=== PATIENT | male | born 1955 | race Caucasian/White ===

== ENCOUNTER 2016-03-17 14:17 | Outpatient (CLI) | payer MEDICAID | END 2016-03-17 14:18 | disposition home or self-care (01) | DX: R03.0 Elevated blood-pressure reading, without diagnosis of hypertension (principal); R97.20 Elevated prostate specific antigen [PSA] ==

== ENCOUNTER 2016-09-13 13:39 | Outpatient (CLI) | payer MEDICAID | END 2016-09-13 13:40 | disposition home or self-care (01) | LOC: LAB 13:39 | PROVIDERS: ATTEND Urology | DX: R97.20 Elevated prostate specific antigen [PSA] (principal) | CPT/HCPCS: 36415; 84153 ==

== ENCOUNTER 2016-10-22 13:58 | Outpatient (CLI) | payer MEDICAID | END 2016-10-22 13:59 | disposition home or self-care (01) | LOC: LAB 13:58 | PROVIDERS: ATTEND Urology | DX: R97.20 Elevated prostate specific antigen [PSA] (principal) | CPT/HCPCS: 84153 ==

== ENCOUNTER 2016-11-10 13:48 | Outpatient (CLI) | payer MEDICAID | END 2016-11-10 13:49 | disposition home or self-care (01) | LOC: LAB 13:48 | PROVIDERS: ATTEND Physician Assistant | DX: R97.20 Elevated prostate specific antigen [PSA] (principal) | CPT/HCPCS: 36415; 84153 ==

== ENCOUNTER 2020-01-22 17:46 | Outpatient (CLI) | payer MEDICARE, OTHER | END 2020-01-22 17:47 | disposition critical access hospital (66) | LOC: EMS 17:46 | PROVIDERS: ATTEND Surgery | DX: I46.9 Cardiac arrest, cause unspecified (principal) | CPT/HCPCS: A0425; A0433 ==

== ENCOUNTER 2020-01-22 18:44 | Emergency (ER) | payer MEDICAID, MEDICARE, OTHER ==
[2020-01-22] MEDS ORDERED: EPINEPHrine ABBOJECT 1 MG/10 ML SYRINGE IVP ONE (18:45)
[2020-01-22] MEDS ORDERED: AMIODARONE 150 MG/3 ML VIAL IV ONE (18:45)
--- NOTE | 2020-01-22 19:07 | ED Physician Documentation ---
PD HPI CPR - Stated complaint Stated Complaint: CPR - Chief complaint Chief Complaint: Critical Care - History obtained from History obtained from: Family (), EMS - Additional information Additional information: 64-year-old man with past medical history of high blood pressure presents in cardiac arrest from home. Per he was in another room and collapsed suddenly. She immediately started CPR and called EMS. EMS reported that he underwent an hour of CPR in the field with 1 shock for V. fib. Multiple rounds of epinephrine were given in the field. In the ED his [place] tube was switched f or an endotracheal tube, CPR was continued and he was given multiple rounds of medication (see code sheet). Patient was asystole on every pulse check and after speaking with about his poor prognosis the decision was made to cease resuscitative efforts. Time of 1858. Review of Systems Unable to obtain: Unresponsive, Intubated PD PAST MEDICAL HISTORY - Past Medical History Cardiovascular: Hypertension - Past Surgical History Past Surgical History: Yes General: Appendectomy - Present Medications Home Medications: Ambulatory Orders Medication Instructions Recorded Confirmed Aspirin 650 mg PO TID 05/10/13 05/10/13 Hydrochlorothiazide 25 mg PO 05/10/13 05/10/13 - Allergies Allergies/Adverse Reactions: Allergies Allergy/AdvReac Type Severity Reaction Status Date / Time No Known Drug Allergies Allergy Verified 05/10/13 17:38 - Social History Does the pt smoke?: No Smoking Status: Never smoker Does the pt drink ETOH?: No - Immunizations Immunizations are current?: No Immunizations: TDAP >10years/unknown PD ED PE NORMAL - Vitals Vital signs reviewed: Yes - General General: Other (Intubated) - HEENT HEENT: Atraumatic, Other (Pupils fixed and unreactive. Vomitus in the airway) - Neck Neck: Other (No visible deformity) - Cardiac Cardiac: Other (Pulseless, CPR in progress) - Respiratory Respiratory: Other (Bilateral breath sounds status post ET tube) - Abdomen Abdomen: Other (Abdomen mildly distended) - Male Male : Deferred - Rectal Rectal: Deferred - Back Back: Other (No visible deformity) - Derm Derm: Other (pale and diaphoretic) - Extremities Extremities: No deformity - Neuro Neuro: Other (intubated) - Psych Psych: Other (intubated) Results - Vitals Vitals: Oxygen O2 Source Room air PD MEDICAL DECISION MAKING - ED course Complexity details: d/w family ED course: 64-year-old man presented in cardiac arrest after prolonged CPR in the field. CPR continued for some time in ed without shockable rhythm on monitor. Discussed with who wishes to cease resuscitative efforts. Likely cardiac etiology. Departure - Departure Disposition: 20 Clinical Impression: Cardiopulmonary arrest
== END 2020-01-23 02:05 | disposition expired ==
LOC: EDUNIT# → ED 18:44
DX: I46.9 Cardiac arrest, cause unspecified (principal); I10 Essential (primary) hypertension
CPT/HCPCS: 92950; 96374; 99281; 99285; J0282